=== PATIENT | female | born 1970 | race Caucasian/White ===

== ENCOUNTER 2024-03-04 09:50 | Day surgery (SDC) | payer OTHER, SELFPAY ==
[2024-02-29 08:30] VITALS: BMI 24.7
--- NOTE | 2024-03-04 | PATH_ITS ---
[facility] Accession Number: [id number] No. of containers..01 Tissue . 01 Material submitted: . endometrium - UTERINE CURETTINGS / POLYP . 01 Diagnosis: UTERINE CURETTINGS AND POLYP: Patchy glandular crowding. Background disordered proliferative endometrium; negative for endometrioid intraepithelial neoplasia or malignancy. Some endometrial fragments demonstrate prominent vessels, suggestive of polyp, if clinical and imaging studies are concordant. [facility] 03/07/2024 1128 Local . 01 Electronically signed: . Anette Augustin MD, Pathologist NPI- [id number] . 01 Gross description: . Received in formalin with two identifiers and uterine curetting and polyp, are multiple longo to brown soft tissue fragments aggregating to 2.2 x 1.2 x 0.2 cm. Filtered and submitted entirely in cassette A1. ([id number]) /[facility] 03/05/2024 1114 Local . 01 Pathologist provided ICD-10: N84.1 . 01 CPT . 926230 Specimen Comment: A courtesy copy of this report has been sent to [phone] Performed at: [address] [facility] [address], [place], [place] [id number] MD Shahid Moya MD Phone: [phone]
[2024-03-04] MEDS: LACTATED RINGERS 1,000 ML 42 ML IV (10:18)
[2024-03-04] MEDS: SCOPOLAMINE 1 PATCH TOP (10:19)
[2024-03-04 10:44] VITALS: BP 147/92; PULSE 88; RESP 16; TEMP 36.2; O2SAT 96; BMI 25.6
--- NOTE | 2024-03-04 11:28 | SUR.OPER ---
Lithotomy on padded OR bed, head on pillow, arms secured on padded arm boards at <90 degrees abduction. Legs secured in padded yellow fins stirrups.
--- NOTE | 2024-03-04 12:25 | PM.GYNHP.1 ---
History of Present Illness History of Present Illness Reason for admission: vaginal bleeding Narrative: Esperanza Akers is a 53 year old female 2 para 2 who presents for a D&C hysteroscopy due to postmenopausal bleeding and a 7 mm endometrial lining. [facility] Medical History (Updated 03/04/24 @ 11:06 by Grecia Huber RN) Wernicke disease with cerebellar manifestation Gestational diabetes mellitus Surgical History (Updated 02/28/18 @ 11:14 by Ariane Rincon) History of third molar tooth extraction Status post delivery (2003) Social History household members: spouse Smoking Status: Never smoker alcohol intake: former Meds Home Medications and Allergies Home Medications Medication Instructions Recorded Confirmed Type MULTIVITAMIN 1 cap PO Q DAY ##0 10/21/11 03/04/24 History VITAMIN D 400 iu PO Q DAY ##1 10/21/11 03/05/18 History estradiol 0.05 mg/24 hr semiweekly 1 patch transdermal 2XW #24 ea 01/31/24 03/04/24 Rx transdermal patch gabapentin 100 mg capsule 100 mg PO DAILY 01/31/24 03/04/24 History naltrexone 50 mg tablet 50 mg PO DAILY 01/31/24 03/04/24 History ondansetron 4 mg disintegrating 4 mg PO Q8H 01/31/24 03/04/24 History tablet progesterone micronized 100 mg 100 mg PO QAM 01/31/24 03/04/24 History capsule sertraline 50 mg tablet 50 mg PO DAILY 01/31/24 03/04/24 History Allergies Allergy/AdvReac Type Severity Reaction Status Date / Time clindamycin Allergy Mild TONGUE Verified 03/04/24 10:58 SWELLS amoxicillin Allergy Unknown Verified 03/04/24 10:58 Exam Vital Signs (past 8 hours): - 03/04/24 10:44 Temperature 97.1 F L Pulse Rate 88 Respiratory Rate 16 Blood Pressure 147/92 H Pulse Oximetry 96 Oxygen Delivery Method Room Air Oxygen Delivery Method Room Air Narrative Exam Narrative: HEENT: No thyromegaly, no anterior cervical or supraclavicular lymphadenopathy. Lungs:Clear to auscultation bilaterally, no wheezes. Cardiovascular: Regular rate and rhythm, no murmurs, rubs, or gallops. Abdomen: Well-healed Pfannenstiel scar. No hepatosplenomegaly. No masses palpable. External genitalia: Normal Vagina: Normal Cervix: Normal Bimanual exam: [7 Week size anteverted uterus. Mobile.] No adnexal masses or tenderness Assessment & Plan Assessment & Plan narrative: Assessment: 53-year-old 2 para 2 with postmenopausal bleeding and a 7 mm endometrial lining Plan: D&C hysteroscopy The risks, benefits, and alternatives to the procedure were explained to the patient. The risks including bleeding, infection, and uterine perforation. She understands these risks and agrees to proceed. A full par Q was held and consent form was signed. Time-Based Coding :: [TOTAL MINUTES] spent with patient and on the chart (including review of chart, obtaining history, exam, reviewing outside data, placing orders, documenting exam and treatment plan, and counseling patient) on [DATE].
--- NOTE | 2024-03-04 12:28 | PM.PREOP ---
Pre-operative Note Interval Note History & Physical reviewed/Exam performed by Physician: Yes Changes to H&P: No H&P completed within 30 days and has changed as indicated here:: 03/04/24
--- NOTE | 2024-03-04 13:06 | P.OP_ITS ---
Operative Date/Time/Diagnoses Date of procedure: 03/04/24 Time of procedure: 13:06 Pre-op diagnosis: Postmenopausal bleeding Endometrial hyperplasia Biopsy in the office showed fragments of polyp Post-op diagnosis: same Procedure & Clinicians Procedure: Procedures Operation Date: 03/04/24 11:45 Actual Procedure Side Surgeon p Hysteroscopy, D&C, polypectomy with myosure Melodie Carver MD Indications: 53-year-old 2 para 2 with postmenopausal bleeding. Thickened endometrial lining and biopsy in the office consistent with fragments of polyp. Surgeon: Melodie Carver Anesthesia Type: General Operative Notes Findings: 7 week size anteverted uterus Both fallopian tube ostia observed Polyp on the left side of the lower uterine segment Thickened endometrium throughout Closure Type: not applicable Specimen(s): endometrial curettings Estimated blood loss (mL): 3 Blood products transfused: none Procedure in detail: After informed consent was obtained, the patient was taken to the operating room where she was placed in the dorsal supine position. After adequate general endotracheal anesthesia was achieved, she was placed in the dorsal lithotomy position, and prepped and draped in the usual sterile fashion. A time-out was performed. A bivalve speculum was placed into the vagina and the anterior lip of the cervix was grasped with a single-tooth tenaculum. The cervical os was sequentially dilated to the #8 Hegar dilator. The hysteroscope passed easily into the endometrial cavity. Both fallopian tube ostia were observed. There was a polyp in the lower uterine segment on the patient's left side. There was thickened endometrial lining throughout. Using the MyoSure Lite, the polyp was resected as well as several areas with thickened endometrium. The instruments were removed from the uterus. The single-tooth tenaculum was removed from the anterior lip of the cervix. The bivalve speculum was removed from the vagina. 30 cc fluid deficit. Total fluids used 1007 cc. Max pressure 80 mmHg. 18 s econds of cutting time. Complications: none Post-operative Condition: stable Disposition: PACU Plan for aftercare: Home after recovery
[2024-03-04 13:15] VITALS: BP 148/88; PULSE 98; RESP 16; TEMP 36.5; O2SAT 97
[2024-03-04 13:20] VITALS: BP 144/84; PULSE 100; RESP 12; O2SAT 94
[2024-03-04 13:25] VITALS: BP 120/70; PULSE 93; RESP 10; O2SAT 95
[2024-03-04 13:30] VITALS: BP 120/68; PULSE 100; RESP 14; TEMP 36.4; O2SAT 95
[2024-03-04 13:33] VITALS: BP 129/74; PULSE 95; RESP 12; TEMP 36.4; O2SAT 95
== END 2024-03-04 14:05 | disposition home or self-care (01) ==
PROVIDERS: Referring Provider Obstetrics & Gynecology; Visit Provider Obstetrics & Gynecology
PROC: 0UDB8ZZ Extraction of Endometrium, Via Natural or Artificial Opening Endoscopic (ICD-10-PCS; CPT 58558; principal; 2024-03-04 11:45)
DX: N84.0 Polyp of corpus uteri (principal)
CPT/HCPCS: 58558; 81025; J0330; J1100; J1885; J2250; J2704; J3010